=== PATIENT | male | born 1975 | race Caucasian/White ===

== ENCOUNTER 2020-11-14 07:19 | Outpatient (CLI) | payer BC | END 2020-11-14 07:20 | disposition home or self-care (01) | LOC: BICCT 07:19 | PROVIDERS: ATTEND Internal Medicine | DX: K63.89 Other specified diseases of intestine (principal); J98.4 Other disorders of lung; J84.10 Pulmonary fibrosis, unspecified; N28.1 Cyst of kidney, acquired; M85.851 Other specified disorders of bone density and structure, right thigh | CPT/HCPCS: 71260; 74177 ==

== ENCOUNTER 2020-12-04 11:00 | Inpatient (IN) | payer BC ==
[2020-12-10] MEDS ORDERED: Acetaminophen 500 MG TAB ONE (06:15)
[2020-12-10] MEDS ORDERED: Ketorolac Tromethamine 30 MG/ML VIAL ONE (06:15)
[2020-12-10] MEDS ORDERED: cefOXitin Sodium/Dextrose 2 GM/50 ML BAG ONE (06:15)
[2020-12-10] MEDS ORDERED: Fentanyl 100 MCG/2 ML VIAL ONE ×2 (06:44→07:14)
[2020-12-10] MEDS ORDERED: Bupivacaine 0.25% HCL 30 ML VIAL ONE (07:07)
[2020-12-10] MEDS ORDERED: EPINEPHrine 1 MG/ML AMP ONE (07:07)
[2020-12-10] MEDS ORDERED: Lidocaine 1% w/Epinephrine 1:100K 20 ML VIAL ONE (07:07)
[2020-12-10] MEDS ORDERED: Midazolam HCl 2 mg/2 ml Vial ONE (07:14)
[2020-12-10] MEDS ORDERED: Ondansetron PF 4 MG/2 ML Vial ONE (07:45)
[2020-12-10] MEDS ORDERED: ePHEDrine Sulfate 50 MG/10 ML VIAL ONE (07:45)
[2020-12-10] MEDS ORDERED: Bupivacaine HCl 0.5%/Epinephrine 1:200,000/PF 30 ml Vial ONE (07:45)
[2020-12-10] MEDS ORDERED: Lidocaine 1% PF 5 ML VIAL ONE (07:45)
[2020-12-10] MEDS ORDERED: Dexamethasone 20 MG/5 ML VIAL ONE (07:45)
[2020-12-10] MEDS ORDERED: Rocuronium Bromide 10 MG/ML (10ML VIAL) ONE (07:45)
[2020-12-10] MEDS ORDERED: Glycopyrrolate 0.2 MG/ML 5 ML SYRINGE ONE (07:45)
[2020-12-10] MEDS ORDERED: PROPOFOL 200 MG/20 ML VIAL ONE (07:45)
[2020-12-10] MEDS ORDERED: ceFOXitin 1 GM VIAL ONE (09:51)
[2020-12-10] MEDS ORDERED: Insulin Regular 300 UNITS/3 ML VIAL SC PRN (11:46)
[2020-12-10] MEDS ORDERED: Dextrose 50% Abboject 50 ML SYRINGE SLOW IVP PRN (11:46)
[2020-12-10] MEDS ORDERED: Dextrose 5% in Water 1,000 ML IV PRN (11:46)
[2020-12-10] MEDS ORDERED: Promethazine HCl 25 MG/ML VIAL IM PRN ×2 (12:24→15:05)
[2020-12-10] MEDS ORDERED: Promethazine HCl 25 MG/ML VIAL SLOW IVP PRN (12:24)
[2020-12-10] MEDS ORDERED: Ondansetron HCl/PF 4 MG/2 ML Vial IVP PRN (12:24)
[2020-12-10] MEDS ORDERED: hydrALAZINE 20 MG/ML VIAL SLOW IVP PRN (15:05)
[2020-12-10] MEDS ORDERED: Ondansetron PF 4 MG/2 ML Vial IVP PRN (15:05)
[2020-12-10] MEDS ORDERED: Morphine 4 MG/ML VIAL SLOW IVP PRN (15:05)
[2020-12-10] MEDS ORDERED: Morphine 2 MG/ML VIAL SLOW IVP PRN (15:05)
[2020-12-10] MEDS: D5 1/2 NS w/20 mEq KCL 1,000 ML IV SCH (16:10)
[2020-12-10] MEDS: Ketorolac Tromethamine 30 MG/ML VIAL IVP SCH ×2 (16:12→21:26)
[2020-12-10 17:12] VITALS: BMI 23.8
[2020-12-10] MEDS: Famotidine 20 MG TAB PO SCH (20:32)
[2020-12-10] MEDS: Enoxaparin Sodium 40 MG/0.4 ML SYRINGE SC SCH (20:32)
[2020-12-10] MEDS: Famotidine/PF 20 mg/2ml Vial SLOW IVP SCH (22:01)
[2020-12-11] MEDS: D5 1/2 NS w/20 mEq KCL 1,000 ML IV SCH ×4 (02:51→17:34)
[2020-12-11] MEDS: Ketorolac Tromethamine 30 MG/ML VIAL IVP SCH ×4 (04:11→21:02)
[2020-12-11 05:43] LABS: #Lymphocytes 0.9 thou/uL (1.20-3.40); #Monocytes 0.9 thou/uL (0.11-0.59); #Neutrophils 8.8 thou/uL (1.40-6.50); %Eosinophils 0.2 % (0.0-10.0); %Lymphocytes 8.2 % (21.0-51.0); %Monocytes 8.7 % (0.0-10.0); %Neutrophils 82.8 % (42.0-75.0); Hemoglobin 11.8 g/dL (14.0-18.0); Mean Corpuscular HGB CONC 33.4 g/dL (32.0-36.0); Mean Corpuscular Hemoglobin 27.9 pg (27.0-31.0); Mean Corpuscular Volume 83.6 fL (78.0-98.0); Mean Platelet Volume 8.1 fL (7.4-10.4); Platelet Count 162 thou/uL (130-400); RBC Distribution Width 12.8 % (11.5-14.5); Red Blood Cell (RBC) Count 4.22 mill/uL (4.70-6.10); White Blood Cell (WBC) Count 10.6 thou/uL (4.8-10.8)
[2020-12-11 06:09] LABS: Anion Gap 10 mmol/L (10-20); BUN (Urea Nitrogen) 11 mg/dL (8.9-20.6); Calc. Creatinine Clearance 117 mL/min (70-130); Carbon Dioxide 26 mmol/L (22-29); Chloride 105 mmol/L (98-107); Glucose 148 mg/dL (70-105); Potassium 4.2 mmol/L (3.5-5.1); Sodium 137 mmol/L (136-145)
[2020-12-11] MEDS ORDERED: HYDROcodone/Acetaminophen 7.5/325 mg Tablet PO PRN ×2 (07:39)
[2020-12-11] MEDS: FLUoxetine HCl 20 MG CAP PO SCH (08:13)
[2020-12-11] MEDS: Famotidine 20 MG TAB PO SCH ×2 (08:13→20:53)
[2020-12-11] MEDS: Famotidine/PF 20 mg/2ml Vial SLOW IVP SCH (08:14)
[2020-12-11] MEDS: Enoxaparin Sodium 40 MG/0.4 ML SYRINGE SC SCH (20:53)
[2020-12-12] MEDS: Ketorolac Tromethamine 30 MG/ML VIAL IVP SCH (03:59)
[2020-12-12] MEDS: D5 1/2 NS w/20 mEq KCL 1,000 ML IV SCH (06:09)
[2020-12-12 08:19] VITALS: BP 126/84; TEMP 98.7
[2020-12-12] MEDS: FLUoxetine HCl 20 MG CAP PO SCH (08:26)
[2020-12-12] MEDS: Famotidine 20 MG TAB PO SCH (08:27)
== END 2020-12-12 10:25 | disposition home or self-care (01) | DRG 331 ==
LOC: SURG A 12-10 05:46
PROVIDERS: ADMIT Specialist; ATTEND Specialist
PROC: 0DBN0ZZ Excision of Sigmoid Colon, Open Approach (ICD-10-PCS; principal; 2020-12-10)
PROC: 07BB0ZX Excision of Mesenteric Lymphatic, Open Approach, Diagnostic (ICD-10-PCS; 2020-12-10)
DX: C19 Malignant neoplasm of rectosigmoid junction (principal); Z20.822 Contact with and (suspected) exposure to COVID-19; F32.9 Major depressive disorder, single episode, unspecified; Z79.899 Other long term (current) drug therapy; Z82.49 Family history of ischemic heart disease and other diseases of the circulatory system; Z87.891 Personal history of nicotine dependence
CPT/HCPCS: 36415; 36416; 80048; 85025; 88309; J0171; J0694; J1100; J1650; J1885; J2250; J2405; J2704; J3010; J3480; S0020

== ENCOUNTER 2020-12-05 10:18 | Outpatient (CLI) | payer BC ==
[2020-12-05 11:25] LABS: #Eosinphils 0.1 10x3/uL (0.0-0.5); #Monocytes 0.4 10x3/uL (0.0-1.1); #Neutrophils 3.5 10x3/uL (1.5-8.4); %Basophils 0.5 % (0.0-2.0); %Eosinophils 2.4 % (0.0-6.0); %Lymphocytes 26.2 % (18.0-47.0); %Neutrophils 62.7 % (40.0-75.0); Hemoglobin 13.3 g/dL (13.5-17.5); Mean Corpuscular HGB CONC 34.3 g/dL (32.0-36.0); Mean Corpuscular Hemoglobin 27.1 pg (27.0-33.0); Mean Corpuscular Volume 79.2 fl (81.2-95.1); Mean Platelet Volume 10.1 fl (7.4-10.4); Platelet Count 185 10x3/uL (150-450); RBC Distribution Width 13.7 % (11.5-14.5); White Blood Cell (WBC) Count 5.5 10x3/uL (3.5-10.5)
[2020-12-05 12:10] LABS: Anion Gap 11 mmol/L (10-20); BUN (Urea Nitrogen) 12 mg/dL (8.9-20.6); Calc. Creatinine Clearance 0 mL/min (70-130); Calcium 8.9 mg/dL (7.8-10.44); Carbon Dioxide 24 mmol/L (22-29); Chloride 104 mmol/L (98-107); Glucose 84 mg/dL (70-105); Sodium 135 mmol/L (136-145)
[2020-12-05 14:47] LABS: Hemoglobin A1c 5.5 % (4.0-6.0)
[2020-12-05 18:01] LABS: SARS-CoV-2 PCR by NAA Not Detected (NotDetected)
== END 2020-12-05 10:19 | disposition home or self-care (01) ==
LOC: LABBT 10:18
PROVIDERS: ATTEND Specialist
DX: Z01.812 Encounter for preprocedural laboratory examination (principal); C80.1 Malignant (primary) neoplasm, unspecified; Z20.822 Contact with and (suspected) exposure to COVID-19
CPT/HCPCS: 80048; 83036; 85025; 87635; U0003; U0005

== ENCOUNTER 2023-11-02 11:53 | Outpatient (CLI) | payer BC | END 2023-11-02 11:54 | disposition home or self-care (01) | LOC: BICCT 11:53 | PROVIDERS: ATTEND Internal Medicine Hematology & Oncology | DX: C18.7 Malignant neoplasm of sigmoid colon (principal); R16.1 Splenomegaly, not elsewhere classified; M87.851 Other osteonecrosis, right femur | CPT/HCPCS: 71260; 74177 ==